=== PATIENT | male | born 2000 | race Caucasian/White ===

== ENCOUNTER 2022-08-11 15:40 | Outpatient (CLI) | payer OTHER ==
--- NOTE | 2022-08-11 19:32 | MRI Report ---
PROCEDURE: LUMBAR SPINE WO INDICATIONS: LOW BACK PAIN TECHNIQUE: Noncontrast sagittal T1 spin echo and T2 fast echo, sagittal STIR, axial T1 and T2 fast spin echo thr ough the lumbar spine. In cases with scoliosis, additional coronal T2 fast spin echo may be performe d. COMPARISON: None. FINDINGS: Image quality: Diagnostic. Alignment and Curvature: There is normal bony alignment. Bone Marrow: Marrow is of normal overall signal. No acute vertebral body compression fractures. Spinal Cord: Conus medullaris terminates at the L1 level. Visualized cord demonstrates normal signa l and size. Paraspinous Soft Tissues: No paravertebral masses. This patient has transitional anatomy. For the purposes of this examination, the level with last well -developed disc space is considered to be T12. By this imaging scheme, there is a transitional, rudim entary disc space at the S1-S2 level. T12-L1: Normal in appearance. L1-L2: Normal in appearance. L2-L3: Normal in appearance. L3-L4: No significant abnormality is seen. L4-L5: The disc height and disc signal are well preserved. Mild disc bulge is seen. Mild to moder ate bilateral neuroforaminal narrowing can be seen. No significant central canal narrowing is seen. L5-S1: No significant abnormality can be seen at this level. S1-S2: A transitional, rudimentary disc is seen. IMPRESSION: Focal premature L4-L5 degenerative change can be seen. Reviewed by: Rosales Koo MD on 08/11/2022 6:30 PM [facility] Approved by: Rosales Koo MD on 08/11/2022 6:30 PM [facility] Station ID: [id number]
== END 2022-08-11 15:41 | disposition home or self-care (01) ==
LOC: DI 15:40
PROVIDERS: ATTEND Physician Assistant
DX: M47.816 Spondylosis without myelopathy or radiculopathy, lumbar region (principal)